=== PATIENT | male | born 1990 | race Caucasian/White ===

== ENCOUNTER 2019-04-26 09:12 | Emergency (ER) | payer SELFPAY ==
[~2019-04-26] VITALS: Ht 177.8 cm; Wt 79.5 kg
[2019-04-26] MEDS ORDERED: ALBU8HFA IH (09:29)
[2019-04-26] MEDS ORDERED: LIDOCAINE/PF 1% 2 ML VIAL IM ONE (10:15)
[2019-04-26] MEDS ORDERED: LIDOCAINE 1% 10 ML VIAL INJ ONE (10:15)
[2019-04-26] MEDS ORDERED: POVIDONE-IODINE 10% 15 ML SOLUTION UD TP ONE (10:15)
[2019-04-26] MEDS ORDERED: CefTRIAXone SODIUM 1 GM/VIAL IM ONE (10:15)
[2019-04-26 11:30] VITALS: BP 124/71
== END 2019-04-26 11:45 | disposition home or self-care (01) ==
LOC: EMS 09:14
DX: L02.414 Cutaneous abscess of left upper limb (principal); J45.909 Unspecified asthma, uncomplicated
CPT/HCPCS: 10060; 96372; 99283; J0696; J3490 ×2

== ENCOUNTER 2019-11-25 23:41 | Emergency (ER) | payer OTHER ==
[~2019-11-25] VITALS: Ht 177.8 cm; Wt 77.3 kg
[~2019-11-25 23:41] MED LIST: ALBU8HFA IH
[2019-11-26] MEDS ORDERED: SULFAMETHOX/TRIMETH DS 800-160 MG/TABLET PO ONE (01:15)
[2019-11-26] MEDS ORDERED: KETOROLAC TROMETHAMINE 30 MG/ML VIAL IM ONE (01:15)
[2019-11-26] MEDS ORDERED: CEPHALEXIN MONOHYDRATE 500 MG CAPSULE PO ONE (01:15)
[2019-11-26 02:35] VITALS: BP 131/77
== END 2019-11-26 02:46 | disposition home or self-care (01) ==
LOC: EMS 23:41
DX: L02.414 Cutaneous abscess of left upper limb (principal)
CPT/HCPCS: 73080; 96372; 99283; J1885

== ENCOUNTER 2019-11-28 00:01 | Emergency (ER) | payer OTHER ==
[~2019-11-28] VITALS: Ht 177.8 cm; Wt 77.3 kg
[2019-11-28] MEDS ORDERED: SULF1TAB42 PO (01:05)
[2019-11-28] MEDS ORDERED: CEPH-582 PO (01:05)
[2019-11-28] MEDS ORDERED: HYDROGEN PEROXIDE 118 ML SOLUTION TP ONE (02:45)
[2019-11-28 03:00] VITALS: BP 131/75
== END 2019-11-28 03:30 | disposition home or self-care (01) ==
LOC: EMS 00:01
DX: L02.414 Cutaneous abscess of left upper limb (principal); L03.114 Cellulitis of left upper limb; J45.909 Unspecified asthma, uncomplicated; Z79.899 Other long term (current) drug therapy